=== PATIENT | female | born 1965 | race African-American/Black ===

== ENCOUNTER → 2019-03-28 | Day surgery (SDC) | payer OTHER ==
[~2019-03-28] MED LIST: CELEBREX200MG PO; FOLIC ACID1 MG PO; HORIZANT300 MG PO; HYZAAR 50-12.51 EACH PO; METHOTREXATE2.5 MG PO; OMEPRAZOLE20 MG PO; RANITIDINE HCL300 MG PO; TEMAZEPAM15 MG PO
== END | disposition home or self-care (01) ==
LOC: ADM 03-21 08:15 → CIR.AMB 06:52
DX: G56.02 Carpal tunnel syndrome, left upper limb (principal)